=== PATIENT | female | born 1950 | race Caucasian/White ===

== ENCOUNTER 2018-11-30 11:28 | Inpatient (IN) | payer MEDICARE, OTHER ==
[2018-11-30 12:21] LABS: BASO % 0.6 % (0.0-2.0); EOS # 0.1 K/uL (0.0-0.7); EOS % 1.6 % (0.0-4.0); HEMOGLOBIN 13.2 g/dL (11.0-16.0); LYMPH # 1.2 K/uL (1.0-4.3); LYMPH % 16.2 % (20.0-40.0); MEAN CELL VOLUME 93.7 fL (81.0-99.0); MEAN CORPUSCULAR HEMOGLOBIN 31.2 pg (27.0-31.0); MEAN CORPUSCULAR HGB CONC 33.3 g/dL (33.0-37.0); MEAN PLATELET VOLUME 8.4 fL (7.2-11.7); MONO # 0.4 K/uL (0.0-0.8); MONO % 6.2 % (0.0-10.0); NEUT # 5.4 K/uL (1.8-7.0); NEUT % 75.4 % (50.0-75.0); RBC 4.23 Mil/uL (3.80-5.20); RED CELL DISTRIBUTION WIDTH 13.7 % (11.5-14.5); WHITE BLOOD COUNT 7.1 K/uL (4.8-10.8)
[2018-11-30 12:36] LABS: ALBUMIN 3.7 g/dL (3.5-5.0); ALT/SGPT 74 U/L (9-52); AST/SGOT 104 U/L (14-36); BLOOD UREA NITROGEN 11 mg/dL (7-17); CALCIUM 8.4 mg/dl (8.6-10.4); GFR NON-AFRICAN AMERICAN 50
--- NOTE | 2018-11-30 12:45 | C.PDOC ---
History Of Present Illness 68 y/o female,w/PMhx of HTN, brought to ER by ALS, for evaluation of sudden onset of shortness of breath which began in the morning. Patient states that the shortness of breath woke her up. Patient reports that she has chest tightne ss.Patient was placed on BIPAP by EMS and she was treated with Nitro, Ativan, and Lasix. Denies having fever,chills, headache,dizziness, nausea, and vomiting. Time Seen by Provider: 11/30/18 11:50 Chief Complaint (Nursing): Shortness Of Breath History Per: Patient History/Exam Limitations: no limitations Onset/Duration Of Symptoms: Hrs Current Symptoms Are (Timing): Still Present Severity: Moderate Past Medical History Reviewed: Historical Data, Nursing Documentation, Vital Signs Vital Signs: Last Vital Signs Temp 97.5 F L 11/30/18 11:36 Pulse 86 11/30/18 11:56 Resp 26 H 11/30/18 11:55 BP 167/100 H 11/30/18 11:36 Pulse Ox 100 11/30/18 11:55 Primary Care Provider: Non [facility] Provider, - Medical History PMH: CHF Surgical History: No Surg Hx Family History: States: No Known Family Hx - Social History Hx Alcohol Use: No Hx Substance Use: No Review Of Systems Except As Marked, All Systems Reviewed And Found Negative. Constitutional: Negative for: Fever, Chills Cardiovascular: Positive for: Other (chest tightness) Respiratory: Positive for: Shortness of Breath Gastrointestinal: Negative for: Nausea, Vomiting Physical Exam - Physical Exam Appears: No Acute Distress, Other (groggy) Skin: Normal Color, Warm, Dry Head: Atraumatic, Normacephalic Eye(s): bilateral: Normal Inspection Nose: Normal Oral Mucosa: Moist Neck: Supple Chest: Symmetrical Cardiovascular: Rhythm Regular (with tachycardia) Respiratory: Normal Breath Sounds, No Rales, No Rhonchi, No Wheezing Gastrointestinal/Abdominal: Soft, No Tenderness, No Guarding, No Rebound, Other (obese) Extremity: Normal ROM, No Calf Tenderness, Other (no pitting edema) Neurological/Psych: Oriented x3, Normal Speech ED Course And Treatment - Laboratory Results Result Diagrams: 11/30/18 12:17 11/30/18 12:17 Lab Results: D-Dimer, Quantitative 442 ng/mlDDU (0-243) H 11/30/18 12:17 Total Bilirubin 0.3 mg/dL (0.2-1.3) 11/30/18 12:17 AST 104 U/L (14-36) H 11/30/18 12:17 ALT 74 U/L (9-52) H 11/30/18 12:17 Alkaline Phosphatase 149 U/L (38-126) H 11/30/18 12:17 Total Protein 7.3 g/dL (6.3-8.3) 11/30/18 12:17 Albumin 3.7 g/dL (3.5-5.0) 11/30/18 12:17 Globulin 3.6 gm/dL (2.2-3.9) 11/30/18 12:17 Albumin/Globulin Ratio 1.0 (1.0-2.1) 11/30/18 12:17 O2 Sat by Pulse Oximetry: 100 (RA) Pulse Ox Interpretation: Normal Medical Decision Making Medical Decision Making: Plan: --Labs --ECG --CXR Disposition Discussed With Dr.: Manjinder Sam - Disposition Disposition: HOSPITALIZED Disposition Time: 15:45 Condition: GUARDED Forms: [facility] (Malawian) - POA Present On Arrival: None - Clinical Impression Clinical Impression: Dyspnea, Orthopnea, CHF (congestive heart failure) - Scribe Statement The provider has reviewed the documentation as recorded by the Delfinaibeli Nayak Provider Attestation: All medical record entries made by the Scribe were at my direction and personally dictated by me. I have reviewed the chart and agree that the record accurately reflects my personal performance of the history, physical exam, medical decision making, and the department course for this patient. I have also personally directed, reviewed, and agree with the discharge instructions and dis position. Decision To Admit - Pt Status Changed To: Hospital Disposition Of: Observation - . Bed Request Type: Telemetry Admitting Physician: Manjinder Sam Patient Diagnosis: Dyspnea, Orthopnea, CHF (congestive heart failure)
[2018-11-30 12:47] LABS: B-TYPE NATRIURETIC PEPTIDE 1990 pg/mL (0-900)
[2018-11-30] MEDS ORDERED: Iodixanol 320 MG/ML 100 ML BOTTLE IV ONE (13:28)
--- NOTE | 2018-11-30 14:10 | CT ---
Date of service: 11/30/2018 CTA chest PE protocol Indication: sob Technique: Contiguous axial images were obtained through the chest with intravenous contrast enhancement. Sagittal and coronal reconstructions were generated and reviewed. This CT exam was performed using 1 or more of the following dose reduction techniques: Automated exposure control, adjustment of the MAA and/or kV according to patient size, and/or use of iterative reconstruction technique. IV contrast: 100 mL Visipaque 320 IV Radiation dose (DLP): 629.98 MGy-cm. Comparison: Chest x-ray performed 11/30/18 Findings: Visualized portions of the inferior thyroid gland appear unremarkable. The mediastinal and hilar vascular structures appear within normal limits. Cardiomegaly. Dense coronary artery calcifications. Small pericardial effusion. Sub cm mediastinal/prevascular lymph nodes, nonspecific. Scattered atherosclerotic calcifications of the aorta. No large central or segmental pulmonary embolus evident. Small bilateral pleural effusions and associated consolidations. Hazy bilateral lower lobe infiltrates. No pneumothorax. Thick-walled esophagus and small to moderate hiatal hernia. Limited visualized portions of the upper abdomen appear grossly unremarkable. Degenerative changes of the spine. Impression: No large central or segmental pulmonary embolus identified. Small bilateral pleural effusions and associated consolidations. Hazy bilateral lower lobe infiltrates. Thick-walled esophagus. Small to moderate hiatal hernia. If indicated suggest further evaluation with endoscopy. Cardiomegaly. Small pericardial effusion. Dense coronary artery calcifications. Sub cm mediastinal/prevascular lymph nodes, nonspecific.
--- NOTE | 2018-11-30 14:55 | RAD ---
Date of service: 11/30/2018 PROCEDURE: CHEST RADIOGRAPH, 1 VIEW HISTORY: SOB COMPARISON: None available. FINDINGS: LUNGS: Low-density coalescent airspace opacity right lung base present. Obscuration of the lateral right hemidiaphragm. Possible trace concomitant left basal airspace opacity. PLEURA: Small right pleural effusion. Trace left pleural effusion. No pneumothorax appreciated. CARDIOVASCULAR: There is presence of aortic atherosclerotic calcification on x-ray. Cardiomegaly. Pulmonary venous congestion present. OSSEOUS STRUCTURES: No significant abnormalities. VISUALIZED UPPER ABDOMEN: Normal. OTHER FINDINGS: None. IMPRESSION: Small right pleural effusion. Trace left pleural effusion. Cardiomegaly with pulmonary venous congestion. Low-density airspace opacity right base low-density right basal infiltrate with or without compressive atelectasis. Concomitant coalescent pulmonary edema here also needs to be considered. Much lesser opacity-minimal infiltrate and subsegmental atelectasis left lateral lung base. An element of CHF the is inferred.
[2018-11-30] MEDS ORDERED: Dextrose 50% SYRINGE Inj (50 ml) IV PRN (16:30)
[2018-11-30] MEDS ORDERED: Glucagon Recombinant 1 mg Inj IM PRN (16:30)
--- NOTE | 2018-11-30 16:59 | CP.PCM.PN ---
Subjective - Date & Time of Evaluation Date of Evaluation: 11/30/18 Time of Evaluation: 16:42 - Subjective Subjective: Medicine Progress Note for Dr. Sam 68 year old female with history of hypertension and diabetes was brought in by ambulance for worsening shortness of breath and chest tightness. Patient reports her symptoms started suddenly approximately 8am today. No prior history of the same. Patient became worried and called the ambulance for herself. En route to the ED, patient was given Ativan, Lasix, and Nitroglycerine. Patient is a poor historian and somnolence throughout the interview. Further detail was obtained from daughter, Evon on the phone. She reports patient does not have a PMD but her last visit to a doctor's office was about 6 years ago. She was told to have hypertension and diabetes but did not start any medications. Patient sleeps with 4 pillows at night and becomes shortness of breath easily while climbing stairs. Daughter denies of patient having recent travels or cardiac workup. Daughter: Evon Kohler [phone] PMD: none PMHx: HTN, DM PSHx: Allergy: none Social hx: current smoker for unknown amount of years, social alcohol consumption Home meds: none Family Hx: father of [place] at age 71 Objective - Vital Signs/Intake and Output Vital Signs (last 24 hours): Temp Pulse Resp BP Pulse Ox 97.5 F L 96 H 18 166/90 H 96 11/30/18 11:36 11/30/18 16:33 11/30/18 16:33 11/30/18 16:33 11/30/18 16:33 - Medications Medications: Current Medications Dextrose (Dextrose 50% Inj) 0 ml IV STAT PRN; Protocol PRN Reason: Hypoglycemia Protocol Dextrose (Glutose 15) 0 gm PO ONCE PRN; Protocol PRN Reason: Hypoglycemia Protocol Enoxaparin Sodium (Lovenox) 40 mg SC DAILY ART Glucagon (Glucagen Diagnostic Kit) 0 mg IM STAT PRN; Protocol PRN Reason: Hypoglycemia Protocol Dextrose (Dextrose 5% In Water 1000 Ml) 1,000 mls @ 0 mls/hr IV .Q0M PRN; Protocol PRN Reason: Hypoglycemia Protocol Insulin Human Regular (Novolin R) 0 unit SC ACHS ART; Protocol Pantoprazole Sodium (Protonix Ec Tab) 40 mg PO DAILY ART - Labs Labs: 11/30/18 12:17 11/30/18 12:17 - Constitutional Appears: Well, No Acute Distress - Head Exam Head Exam: ATRAUMATIC, NORMAL INSPECTION, NORMOCEPHALIC - Eye Exam Eye Exam: EOMI, Normal appearance - ENT Exam ENT Exam: Mucous Membranes Moist, Normal Exam - Neck Exam Neck Exam: Full ROM, Normal Inspection - Respiratory Exam Respiratory Exam: Clear to Ausculation Bilateral, NORMAL BREATHING PATTERN. absent: Wheezes, Respiratory Distress - Cardiovascular Exam Cardiovascular Exam: REGULAR RHYTHM, +S1, +S2. absent: Murmur - GI/Abdominal Exam GI & Abdominal Exam: Soft, Normal Bowel Sounds. absent: Tenderness - Extremities Exam Extremities Exam: Normal Capillary Refill. absent: Normal Inspection (slight bilateral leg swelling, nonpitting), Tenderness - Neurological Exam Neurological Exam: Alert, Oriented x3. absent: Awake (somnolence) - Psychiatric Exam Psychiatric exam: Normal Affect, Normal Mood - Skin Skin Exam: Dry, Warm Assessment and Plan - Assessment and Plan (Free Text) Assessment: Shortness of breath -Likely due to CHF, unspecific chronicity -BNP 1989 -Troponin negative x1, repeats pending -EKG shows sinus tachy @104, no axis deviation, LVH, no acute ST elevation appreciated -CXR shows Small right pleural effusion. Trace left pleural effusion. Card iomegaly with pulmonary venous congestion. Low-density airspace opacity right base low-density right basal infiltrate with or without compressive atelectasis. Concomitant coalescent pulmonary edema here also needs to be considered. Much lesser opacity-minimal infiltrate and subsegmental atelectasis left lateral lung base. An element of CHF the is inferred. -CT Chest shows No large central or segmental pulmonary embolus identified. Small bilateral pleural effusions and associated consolidations. Hazy bilateral lower lobe infiltrates. Thick-walled esophagus. Small to moderate hiatal hernia . Dense coronary artery calcifications. -Follow up echocardiogram, urine tox, TSH -Lasix 20mg IV -ASA 81mg -Cardiology consulted, Dr. Cordova help appreciated Hypertension -Lisinopril 10mg Hypokalemia -Potassium 3.3 on admission -Replete as needed -Follow up AM Mg, labs Diabetes -ISS -Accucheck ACHS -Hypoglycemia protocol -Follow up A1c, lipid panel Prophylactic measures -Protonix -Lovenox -SCD Case discussed with attending physician Dr. Sam
[2018-11-30 17:17] LABS: BARBITURATES, UR NEGATIVE (NEGATIVE); BENZODIAZEPINES, UR NEGATIVE (NEGATIVE); OPIATES, UR NEGATIVE (NEGATIVE); PHENCYCLIDINE, UR NEGATIVE (NEGATIVE)
[2018-11-30] MEDS ORDERED: Potassium Chloride 20 mEq ER Tab PO ONE (17:30)
[2018-11-30 18:08] VITALS: BMI 36.1
[2018-11-30 20:28] LABS: CK-MB 1.11 ng/mL (0.0-3.38); TROPONIN I 0.079 ng/mL (0.00-0.120)
[2018-11-30] MEDS: (Novolin R) Insulin Human Regular 100 units/ml vial SC SCH (21:14)
[2018-12-01 02:26] LABS: CK-MB 0.76 ng/mL (0.0-3.38); TROPONIN I 0.073 ng/mL (0.00-0.120)
[2018-12-01] MEDS: (Novolin R) Insulin Human Regular 100 units/ml vial SC SCH ×4 (08:03→21:23)
[2018-12-01 08:34] LABS: BASO % 0.5 % (0.0-2.0); EOS # 0.2 K/uL (0.0-0.7); EOS % 3.9 % (0.0-4.0); HEMOGLOBIN 13.6 g/dL (11.0-16.0); LYMPH # 2.1 K/uL (1.0-4.3); LYMPH % 41.7 % (20.0-40.0); MEAN CELL VOLUME 92.1 fL (81.0-99.0); MEAN CORPUSCULAR HEMOGLOBIN 31.3 pg (27.0-31.0); MEAN CORPUSCULAR HGB CONC 33.9 g/dL (33.0-37.0); MONO # 0.5 K/uL (0.0-0.8); MONO % 9.7 % (0.0-10.0); NEUT # 2.3 K/uL (1.8-7.0); NEUT % 44.2 % (50.0-75.0); RBC 4.36 Mil/uL (3.80-5.20); RED CELL DISTRIBUTION WIDTH 13.8 % (11.5-14.5); WHITE BLOOD COUNT 5.1 K/uL (4.8-10.8)
--- NOTE | 2018-12-01 08:45 | CP.PCM.CON ---
"<Ronnie Neri - Last Filed: 12/01/18 16:35> History of Present Illness - History of Present Illness History of Present Illness: Consult Note for Dr. Cordova Cardiac Service Ms. Damon Salomon is 68 year old female with a PMH of HTN, HLD,and pre-diabetes; not currently on any medication. Patient was admitted on 11/30/18 for SOB and chest tightness. Cardiology consulted for evaluation and treatment of chest tightness/chf. She states she called the ambulance after experiencing SOB and chest tightness starting at around 8:30 AM. Patient denies any history of similar episodes, pain, radiating pain to the jaw, L. arm, shoulders, and abdomen. She admitted to increase in sweating, and being unable to lay down flat in the ambulance due to fear being unable to breath. She de nies having an event like this Patient admitted to using one line of cocaine on November 28. She states she felt like trying it and spoke about the difficult year she's had since her past away this past Aug. Patient also admitted to a previous abnormal stress test w/ Dr. Temple and recommendations of stent placement which she declined. Currently, patient has no acute complains. She denies fevers, chills, SOB, palpitations, dysurea, constipation, diarrhea, and pedal edema. Patient states she is supposed to be on medication for HTN and HLD but admits to non-compliance. ROS: As stated Above PMH: HTN, HLD, Impaired Glucose Tolerance PSH: Exploratory lap, unable to state the cause. Denies . Allergies: NKDA FamilyHx: Dad; of ID at 71, Mom; alive pacemaker at the age of 57, grandmother; of ID at 36. SocialHx: current smoker 1/2 PPD for 5 months. denies ETOH, Admits to Coccaine. Home meds: Patient supposed to be on medication but has not been for some time PMD: Used to see a Dr. Margarita Vallecillo. Review of Systems - Review of Systems Review of Systems: As per HPI Past Patient History - Past Social History Smoking Status: Never Smoked - CARDIAC Hx Congestive Heart Failure: Yes - ENDOCRINE/METABOLIC Hx Endocrine Disorders: Yes Hx Diabetes Mellitus Type 2: Yes - PSYCHIATRIC Hx Substance Use: No - SURGICAL HISTORY Hx Surgeries: No Meds Allergies/Adverse Reactions: Allergies Allergy/AdvReac Type Severity Reaction Status Date / Time No Known Allergies Allergy Verified 11/30/18 11:33 - Medications Medications: Current Medications Aspirin (Aspirin Chewable) 81 mg PO DAILY ART Dextrose (Dextrose 50% Inj) 0 ml IV STAT PRN; Protocol PRN Reason: Hypoglycemia Protocol Dextrose (Glutose 15) 0 gm PO ONCE PRN; Protocol PRN Reason: Hypoglycemia Protocol Enoxaparin Sodium (Lovenox) 40 mg SC DAILY ART Furosemide (Lasix) 20 mg IVP DAILY [facility] Glucagon (Glucagen Diagnostic Kit) 0 mg IM STAT PRN; Protocol PRN Reason: Hypoglycemia Protocol Dextrose (Dextrose 5% In Water 1000 Ml) 1,000 mls @ 0 mls/hr IV .Q0M PRN; Protocol PRN Reason: Hypoglycemia Protocol Insulin Human Regular (Novolin R) 0 unit SC ACHS ART; Protocol Last Admin: 12/01/18 08:03 Dose: Not Given Pantoprazole Sodium (Protonix Ec Tab) 40 mg PO DAILY [facility] Physical Exam - Constitutional Appears: Well, Non-toxic, No Acute Distress - Head Exam Head Exam: ATRAUMATIC, NORMAL INSPECTION, NORMOCEPHALIC - Eye Exam Eye Exam: EOMI - ENT Exam ENT Exam: Mucous Membranes Moist - Respiratory Exam Respiratory Exam: Clear to Auscultation Bilateral. absent: Accessory Muscle Use, Rales, Rhonchi, Wheezes - Cardiovascular Exam Cardiovascular Exam: RRR, +S1, +S2. absent: JVD - GI/Abdominal Exam GI & Abdominal Exam: Normal Bowel Sounds, Soft. absent: Tenderness - Extremities Exam Extremities exam: Negative for: pedal edema - Neurological Exam Neurological exam: Alert, Oriented x3 - Psychiatric Exam Psychiatric exam: Normal Affect, Normal Mood - Skin Skin Exam: Dry, Intact, Normal Color, Warm Results - Vital Signs Recent Vital Signs: Last Vital Signs Temp 98.3 F 11/30/18 23:48 Pulse 100 H 11/30/18 23:55 Resp 20 11/30/18 23:48 BP 136/77 11/30/18 23:48 Pulse Ox 100 12/01/18 03:00 - Labs Result Diagrams: 12/01/18 08:20 12/01/18 08:20 Labs: Laboratory Results - last 24 hr 11/30/18 11/30/18 11/30/18 12:17 12:17 12:17 WBC 7.1 RBC 4.23 Hgb 13.2 Hct 39.6 MCV 93.7 MCH 31.2 H MCHC 33.3 RDW 13.7 Plt Count 243 MPV 8.4 Neut % (Auto) 75.4 H Lymph % (Auto) 16.2 L [place] % (Auto) 6.2 Eos % (Auto) 1.6 Baso % (Auto) 0.6 Neut # (Auto) 5.4 Lymph # (Auto) 1.2 [place] # (Auto) 0.4 Eos # (Auto) 0.1 Baso # (Auto) 0.0 D-Dimer, Quantitative 442 H Sodium 142 Potassium 3.3 L Chloride 104 Carbon Dioxide 27 Anion Gap 14 BUN 11 Creatinine 1.1 Est GFR ( Amer) > 60 Est GFR (Non-Af Amer) 50 POC Glucose (mg/dL) Random Glucose 222 H Calcium 8.4 L Total Bilirubin 0.3 AST 104 H ALT 74 H Alkaline Phosphatase 149 H Total Creatine Kinase CK-MB (Mass) Troponin I 0.0260 NT-Pro-B Natriuret Pep 1990 H Total Protein 7.3 Albumin 3.7 Globulin 3.6 Albumin/Globulin Ratio 1.0 Urine Opiates Screen Urine Methadone Screen Ur Barbiturates Screen Ur Phencyclidine Scrn Ur Amphetamines Screen U Benzodiazepines Scrn U Oth Cocaine Metabols U Cannabinoids Screen 11/30/18 11/30/18 11/30/18 16:32 16:43 19:59 WBC RBC Hgb Hct MCV MCH MCHC RDW Plt Count MPV Neut % (Auto) Lymph % (Auto) [place] % (Auto) Eos % (Auto) Baso % (Auto) Neut # (Auto) Lymph # (Auto) [place] # (Auto) Eos # (Auto) Baso # (Auto) D-Dimer, Quantitative Sodium Potassium Chloride Carbon Dioxide Anion Gap BUN Creatinine Est GFR ( Amer) Est GFR (Non-Af Amer) POC Glucose (mg/dL) 155 H Random Glucose Calcium Total Bilirubin AST ALT Alkaline Phosphatase Total Creatine Kinase 48 CK-MB (Mass) 1.11 Troponin I 0.0790 NT-Pro-B Natriuret Pep Total Protein Albumin Globulin Albumin/Globulin Ratio Urine Opiates Screen Negative Urine Methadone Screen Negative Ur Barbiturates Screen Negative Ur Phencyclidine Scrn Negative Ur Amphetamines Screen Negative U Benzodiazepines Scrn Negative U Oth Cocaine Metabols Positive H U Cannabinoids Screen Negative 11/30/18 12/01/18 12/01/18 20:57 01:42 06:08 WBC RBC Hgb Hct MCV MCH MCHC RDW Plt Count MPV Neut % (Auto) Lymph % (Auto) [place] % (Auto) Eos % (Auto) Baso % (Auto) Neut # (Auto) Lymph # (Auto) [place] # (Auto) Eos # (Auto) Baso # (Auto) D-Dimer, Quantitative Sodium Potassium Chloride Carbon Dioxide Anion Gap BUN Creatinine Est GFR ( Amer) Est GFR (Non-Af Amer) POC Glucose (mg/dL) 176 H 127 H Random Glucose Calcium Total Bilirubin AST ALT Alkaline Phosphatase Total Creatine Kinase 35 CK-MB (Mass) 0.76 Troponin I 0.0730 NT-Pro-B Natriuret Pep Total Protein Albumin Globulin Albumin/Globulin Ratio Urine Opiates Screen Urine Methadone Screen Ur Barbiturates Screen Ur Phencyclidine Scrn Ur Amphetamines Screen U Benzodiazepines Scrn U Oth Cocaine Metabols U Cannabinoids Screen 12/01/18 08:20 WBC 5.1 RBC 4.36 Hgb 13.6 Hct 40.2 MCV 92.1 MCH 31.3 H MCHC 33.9 RDW 13.8 Plt Count 270 MPV 9.0 Neut % (Auto) 44.2 L Lymph % (Auto) 41.7 H [place] % (Auto) 9.7 Eos % (Auto) 3.9 Baso % (Auto) 0.5 Neut # (Auto) 2.3 Lymph # (Auto) 2.1 [place] # (Auto) 0.5 Eos # (Auto) 0.2 Baso # (Auto) 0.0 D-Dimer, Quantitative Sodium Potassium Chloride Carbon Dioxide Anion Gap BUN Creatinine Est GFR ( Amer) Est GFR (Non-Af Amer) POC Glucose (mg/dL) Random Glucose Calcium Total Bilirubin AST ALT Alkaline Phosphatase Total Creatine Kinase CK-MB (Mass) Troponin I NT-Pro-B Natriuret Pep Total Protein Albumin Globulin Albumin/Globulin Ratio Urine Opiates Screen Urine Methadone Screen Ur Barbiturates Screen Ur Phencyclidine Scrn Ur Amphetamines Screen U Benzodiazepines Scrn U Oth Cocaine Metabols U Cannabinoids Screen Assessment & Plan - Assessment and Plan (Free Text) Assessment: 68 year old female with a PMH of HTN, HLD,and pre-diabetes; not currently on any medication. Patient was admitted on 11/30/18 for SOB and chest tightness. Cardiology consulted for evaluation and treatment of chest tight ness/chf. Plan: Chest Tightness | Elevated BNP | HTN Labs: Troponin: NEGATIVE x 3, BNP: 1990 | UDS: Positive for Coccaine| D-Dimer: 442 Labs (PENDING): Lipid Panel, TSH/Free T4, Hemoglobin A1C - F/U CXR (Admission): Small right pleural effusion. Trace left pleural effusion. Cardiomegaly with pulmonary venous congestion. Low-density airspace opacity right base low-density right basal infiltrate with or without compressive atelectasis. Concomitant coalescent pulmonary edema here also needs to be considered. Much lesser opacity-minimal infiltrate and subsegmental atelectasis left lateral lung base. An element of CHF the is inferred. Chest CT:No large central or segmental pulmonary embolus identified. Small bilateral pleural effusions and associated consolidations. Hazy bilateral lower lobe infiltrates. Thick-walled esophagus. Small to moderate hiatal hernia. If indicated suggest further evaluation with endoscopy. Cardiomegaly. Small pericardial effusion. Dense coronary artery calcifications. Sub cm mediastinal/prevascular lymph nodes, nonspecific. ECHO (11/30/18): Preliminary Read show about 30% EF and Mitral Regurg. F/U Off icial read. Mgmt: Start Lisinopril 10mg PO Daily Increase Lasix from 20mg Daily to BID IVP. 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 DISPO: NPO after midnight, Nuclear Stress Test Tomorrow in the AM vs possible Ca rdiac Cath. Patient to be discused with Attending (Dr. Cordova) Ronnie Neri, PGY-2 <John Cordova - Last Filed: 12/03/18 08:42> Meds - Medications Medications: Current Medications Amlodipine Besylate (Norvasc) 5 mg PO DAILY [facility] Last Admin: 12/02/18 12:50 Dose: 5 mg Aspirin (Aspirin Chewable) 81 mg PO DAILY [facility] Last Admin: 12/02/18 12:50 Dose: 81 mg Carvedilol (Coreg) 3.125 mg PO BID [facility] Last Admin: 12/02/18 17:43 Dose: 3.125 mg Dextrose (Dextrose 50% Inj) 0 ml IV STAT PRN; Protocol PRN Reason: Hypoglycemia Protocol Dextrose (Glutose 15) 0 gm PO ONCE PRN; Protocol PRN Reason: Hypoglycemia Protocol Enoxaparin Sodium (Lovenox) 60 mg SC Q12 ATR Furosemide (Lasix) 20 mg IVP DAILY [facility] Last Admin: 12/02/18 12:49 Dose: 20 mg Glucagon (Glucagen Diagnostic Kit) 0 mg IM STAT PRN; Protocol PRN Reason: Hypoglycemia Protocol Dextrose (Dextrose 5% In Water 1000 Ml) 1,000 mls @ 0 mls/hr IV .Q0M PRN; Protocol PRN Reason: Hypoglycemia Protocol Insulin Human Regular (Novolin R) 0 unit SC ACHS ART; Protocol Last Admin: 12/03/18 08:16 Dose: Not Given Lisinopril (Zestril) 10 mg PO DAILY [facility] Last Admin: 12/02/18 12:50 Dose: 10 mg Rosuvastatin Calcium (Crestor) 40 mg PO HS [facility] Results - Vital Signs Recent Vital Signs: Last Vital Signs Temp 98.1 F 12/02/18 23:10 Pulse 76 12/02/18 23:10 Resp 20 12/02/18 23:10 BP 132/63 12/02/18 23:10 Pulse Ox 97 12/02/18 23:10 - Labs Result Diagrams: 12/03/18 07:07 12/03/18 07:07 Labs: Laboratory Results - last 24 hr 12/02/18 12/02/18 12/02/18 12:52 13:29 13:29 WBC 4.8 RBC 4.58 Hgb 14.1 Hct 42.1 MCV 92.0 MCH 30.8 MCHC 33.4 RDW 13.6 Plt Count 276 MPV 8.4 Neut % (Auto) 39.4 L Lymph % (Auto) 46.0 H [place] % (Auto) 10.3 H Eos % (Auto) 4.1 H Baso % (Auto) 0.2 Neut # (Auto) 1.9 Lymph # (Auto) 2.2 [place] # (Auto) 0.5 Eos # (Auto) 0.2 Baso # (Auto) 0.0 Sodium 139 Potassium 4.2 Chloride 103 Carbon Dioxide 27 Anion Gap 13 BUN 12 Creatinine 1.2 Est GFR ( Amer) 54 Est GFR (Non-Af Amer) 45 POC Glucose (mg/dL) 169 H Random Glucose 164 H D Hemoglobin A1c Calcium 9.7 Phosphorus 3.3 Magnesium 1.9 Total Bilirubin 0.4 AST 38 H D ALT 40 Alkaline Phosphatase 140 H Total Protein 7.9 Albumin 4.1 Globulin 3.9 Albumin/Globulin Ratio 1.1 Triglycerides 147 Cholesterol 229 H LDL Cholesterol Direct 146 H HDL Cholesterol 53 Free T4 TSH 3rd Generation 2.22 12/02/18 12/02/18 12/02/18 13:29 13:29 16:07 WBC RBC Hgb Hct MCV MCH MCHC RDW Plt Count MPV Neut % (Auto) Lymph % (Auto) [place] % (Auto) Eos % (Auto) Baso % (Auto) Neut # (Auto) Lymph # (Auto) [place] # (Auto) Eos # (Auto) Baso # (Auto) Sodium Potassium Chloride Carbon Dioxide Anion Gap BUN Creatinine Est GFR ( Amer) Est GFR (Non-Af Amer) POC Glucose (mg/dL) 187 H Random Glucose Hemoglobin A1c 8.3 H Calcium Phosphorus Magnesium Total Bilirubin AST ALT Alkaline Phosphatase Total Protein Albumin Globulin Albumin/Globulin Ratio Triglycerides Cholesterol LDL Cholesterol Direct HDL Cholesterol Free T4 1.10 TSH 3rd Generation 12/02/18 12/03/18 12/03/18 20:48 06:42 07:07 WBC 4.4 L RBC 4.37 Hgb 13.5 Hct 40.4 MCV 92.4 MCH 30.9 MCHC 33.4 RDW 13.8 Plt Count 266 MPV 8.7 Neut % (Auto) 33.3 L Lymph % (Auto) 49.2 H [place] % (Auto) 11.1 H Eos % (Auto) 5.6 H Baso % (Auto) 0.8 Neut # (Auto) 1.5 L Lymph # (Auto) 2.2 [place] # (Auto) 0.5 Eos # (Auto) 0.2 Baso # (Auto) 0.0 Sodium Potassium Chloride Carbon Dioxide Anion Gap BUN Creatinine Est GFR ( Amer) Est GFR (Non-Af Amer) POC Glucose (mg/dL) 145 H 117 H Random Glucose Hemoglobin A1c Calcium Phosphorus Magnesium Total Bilirubin AST ALT Alkaline Phosphatase Total Protein Albumin Globulin Albumin/Globulin Ratio Triglycerides Cholesterol LDL Cholesterol Direct HDL Cholesterol Free T4 TSH 3rd Generation 12/03/18 07:07 WBC RBC Hgb Hct MCV MCH MCHC RDW Plt Count MPV Neut % (Auto) Lymph % (Auto) [place] % (Auto) Eos % (Auto) Baso % (Auto) Neut # (Auto) Lymph # (Auto) [place] # (Auto) Eos # (Auto) Baso # (Auto) Sodium 138 Potassium 4.0 Chloride 107 Carbon Dioxide 23 Anion Gap 12 BUN 19 H Creatinine 1.4 H Est GFR ( Amer) 46 Est GFR (Non-Af Amer) 38 POC Glucose (mg/dL) Random Glucose 114 H D Hemoglobin A1c Calcium 9.4 Phosphorus 3.8 Magnesium 1.9 Total Bilirubin 0.3 AST 30 ALT 34 Alkaline Phosphatase 121 Total Protein 7.3 Albumin 3.7 Globulin 3.6 Albumin/Globulin Ratio 1.0 Triglycerides Cholesterol LDL Cholesterol Direct HDL Cholesterol Free T4 TSH 3rd Generation Assessment & Plan - Assessment and Plan (Free Text) Plan: Patient seen and evaluated personally by me. Plan of care d/w the resident and as documented"
[2018-12-01 08:57] LABS: ALBUMIN 3.7 g/dL (3.5-5.0); ALT/SGPT 48 U/L (9-52); AST/SGOT 49 U/L (14-36); BLOOD UREA NITROGEN 11 mg/dL (7-17); CALCIUM 8.8 mg/dl (8.6-10.4); GFR NON-AFRICAN AMERICAN 50
[2018-12-01] MEDS ORDERED: Pantoprazole 40 mg EC Tab PO SCH (10:00)
[2018-12-01] MEDS ORDERED: Enoxaparin 40 mg Syringe SC SCH (10:00)
--- NOTE | 2018-12-01 13:38 | CP.PCM.PN ---
Subjective - Date & Time of Evaluation Date of Evaluation: 12/01/18 Time of Evaluation: 07:45 - Subjective Subjective: [place] note (Dr. Sam's service) Patient was seen and examined at bedside while resting in bed in no acute distress. Patient states that she is with improved symptoms and denies any acute issues or complaints. Currently, patient denies any symptoms of fever, chills, nausea, vomiting, chest pain, palpitations, shortness of breath, dizziness, or syncope. Patient states that she is able to ambulate without any difficulties or symptoms of shortness of breath. Objective - Vital Signs/Intake and Output Vital Signs (last 24 hours): Temp Pulse Resp BP Pulse Ox 98.4 F 96 H 20 158/92 H 95 12/01/18 07:00 12/01/18 07:35 12/01/18 07:00 12/01/18 09:15 12/01/18 07:00 - Medications Medications: Current Medications Amlodipine Besylate (Norvasc) 5 mg PO DAILY [facility] Aspirin (Aspirin Chewable) 81 mg PO DAILY [facility] Last Admin: 12/01/18 09:16 Dose: 81 mg Dextrose (Dextrose 50% Inj) 0 ml IV STAT PRN; Protocol PRN Reason: Hypoglycemia Protocol Dextrose (Glutose 15) 0 gm PO ONCE PRN; Protocol PRN Reason: Hypoglycemia Protocol Enoxaparin Sodium (Lovenox) 40 mg SC DAILY [facility] Last Admin: 12/01/18 09:16 Dose: 40 mg Furosemide (Lasix) 20 mg IVP DAILY [facility] Last Admin: 12/01/18 09:15 Dose: 20 mg Glucagon (Glucagen Diagnostic Kit) 0 mg IM STAT PRN; Protocol PRN Reason: Hypoglycemia Protocol Dextrose (Dextrose 5% In Water 1000 Ml) 1,000 mls @ 0 mls/hr IV .Q0M PRN; Protocol PRN Reason: Hypoglycemia Protocol Insulin Human Regular (Novolin R) 0 unit SC ACHS [facility]; Protocol Last Admin: 12/01/18 12:39 Dose: 3 units Pantoprazole Sodium (Protonix Ec Tab) 40 mg PO DAILY [facility] Last Admin: 12/01/18 09:15 Dose: 40 mg - Labs Labs: 12/01/18 08:20 12/01/18 08:20 - Constitutional Appears: No Acute Distress - Head Exam Head Exam: ATRAUMATIC, NORMAL INSPECTION - Eye Exam Eye Exam: EOMI, Normal appearance - ENT Exam ENT Exam: Mucous Membranes Moist - Respiratory Exam Respiratory Exam: Clear to Ausculation Bilateral, NORMAL BREATHING PATTERN. absent: Decreased Breath Sounds, Prolonged Expiratory Phase, Rhonchi, Wheezes - Cardiovascular Exam Cardiovascular Exam: REGULAR RHYTHM, +S1, +S2. absent: Murmur - GI/Abdominal Exam GI & Abdominal Exam: Soft, Normal Bowel Sounds. absent: Distended, Firm, Guarding, Rigid, Tenderness - Extremities Exam Extremities Exam: Normal Inspection. absent: Calf Tenderness, Pedal Edema - Neurological Exam Neurological Exam: Alert, Awake, Oriented x3 - Psychiatric Exam Psychiatric exam: Normal Affect - Skin Skin Exam: Normal Color Assessment and Plan (1) Dyspnea Assessment & Plan: Imaging suggestive of acute CHF Consultation: Cardiology, Dr. Cordova----> Help appreciated * Management as per recommendation Imaging/labs: Troponin: Negative X3 EKG (11/30/18): NSR @ 63BPM. Voltage criteria ventricular hypertrophy -CXR (11/30/18): shows Small right pleural effusion. Trace left pleural effusion. Cardiomegaly with pulmonary venous congestion. Low-density airspace opacity right base low-density right basal infiltrate with or without compressive atelectasis. Concomitant coalescent pulmonary edema here also needs to be considered. Much lesser opacity-minimal infiltrate and subsegmental atelectasis left lateral lung base. An element of CHF the is inferred. -CT Chest (PE protocol) 11/30/18: shows No large central or segmental pulmonary embolus identified. Small bilateral pleural effusions and associated consolidations. Hazy bilateral lower lobe infiltrates. Thick-walled esophagus. Small to moderate hiatal hernia. Dense coronary artery calcifications. F/u echocardiogram report Status: Acute (2) CHF (congestive heart failure) Assessment & Plan: Consultation: Cardiology, Dr. Cordova----> Help appreciated Management as per recommendation Imaging/Lab: Troponin: Negative X3 EKG (11/30/18): NSR @ 63BPM. Voltage criteria ventricular hypertrophy CXR (11/30/18): shows Small right pleural effusion. Trace left pleural effusion. Cardiomegaly with pulmonary venous congestion. Low-density airspace opacity right base low-density right basal infiltrate with or without compressive atelectasis. Concomitant coalescent pulmonary edema here also needs to be considered. Much lesser opacity-minimal infiltrate and subsegmental atelectasis left lateral lung base. An element of CHF the is inferred. CT Chest (PE protocol) 11/30/18: shows No large central or segmental pulmonary embolus identified. Small bilateral pleural effusions and associated consolidations. Hazy bilateral lower lobe infiltrates. Thick-walled esophagus. Small to moderate hiatal hernia. Dense coronary artery calcifications. F/u echocardiogram report F/u TSH, Free T4, HgbA1C and Lipid panel Medications/management: - Lasix 20mg IV daily - Fluid restriction - Daily weight Status: Acute (3) Uncontrolled hypertension Assessment & Plan: Initiated Norvasc 5mg PO daily (12/01/18) Monitor for vital Q4H Status: Acute (4) Elevated d-dimer Assessment & Plan: On admission: * D-dimer: 442 CT Chest (PE protocol) 11/30/18: shows No large central or segmental pulmonary embolus identified. Small bilateral pleural effusions and associated consolidations. Hazy bilateral lower lobe infiltrates. Thick-walled esophagus. Small to moderate hiatal hernia. Dense coronary artery calcifications. Status: Acute (5) Prophylactic measure Assessment & Plan: GI: Not indicated DVT: SCDs, lovenox 40mg SC daily All plans and management discussed with Dr. Sam Status: Acute
--- NOTE | 2018-12-01 16:22 | CARD ---
APPROVED REPORT Date of service: 12/01/2018 EXAM: Two-dimensional and M-mode echocardiogram with Doppler and color Doppler. INDICATION Dyspnea Congestive Heart Failure bipap RISK FACTORS Hypertension Diabetes 2D DIMENSIONS IVSd1.1 (0.7-1.1cm)LVDd5.5 (3.9-5.9cm) PWd1.2 (0.7-1.1cm)LA [id number] (18-58mL) LVDs4.6 (2.5-4.0cm)FS (%) 16.7 % LVEF (%)34.6 (>50%)LVEF ([place]'s)37.55 % M-Mode DIMENSIONS Left Atrium (MM)4.51 (2.5-4.0cm)IVSd1.09 (0.7-1.1cm) Aortic Root3.15 (2.2-3.7cm)LVDd5.67 (4.0-5.6cm) Aortic Cusp Exc.1.87 (1.5-2.0cm)PWd1.07 (0.7-1.1cm) FS (%) 22 %LVDs4.44 (2.0-3.8cm) LVEF (%)43 (>50%) Mitral Valve MV E [id number]/sMV A Ksxjcuhh95.5cm/sE/A ratio1.5 [id number] cm/s TDI Lateral E' Peak V5.58cm/sMedial E' Peak V5.19cm/sE/Lateral E'16.8 E/Medial E'18.1 Tricuspid Valve TR Peak [id number]/sTR Peak [id number] LEFT VENTRICLE The left ventricle is normal size. There is normal left ventricular wall thickness. The Ejection Fraction is 35-40%. Transmitral Doppler flow pattern is Grade II-pseudonormal filling dynamics. The left atrial pressure is mildly elevated. RIGHT VENTRICLE The right ventricle is normal size. The right ventricular systolic function is normal. ATRIA The left atrium is moderately dilated. The right atrium size is normal. The interatrial septum is intact with no evidence for an atrial septal defect. AORTIC VALVE The aortic valve is mildly sclerotic. No aortic regurgitation is present. MITRAL VALVE Mitral annular calcification is mild. Mitral regurgitation is moderate. TRICUSPID VALVE The tricuspid valve is normal in structure. There is mild to moderate tricuspid regurgitation. Right ventricular systolic pressure is estimated at 45 mmHg. There is moderate pulmonary hypertension. PULMONIC VALVE The pulmonary valve is normal in structure. There is mild pulmonic valvular regurgitation. GREAT VESSELS The aortic root is normal in size. The IVC is normal in size and collapses >50% with inspiration. PERICARDIAL EFFUSION There is no pericardial effusion. <Conclusion> The left ventricle is normal size. The Ejection Fraction is 35-40%. Transmitral Doppler flow pattern is Grade II-pseudonormal filling dynamics. The left atrial pressure is mildly elevated. The left atrium is moderately dilated. Mitral regurgitation is moderate. There is mild to moderate tricuspid regurgitation. Right ventricular systolic pressure is estimated at 45 mmHg. There is moderate pulmonary hypertension. The aortic root is normal in size. There is no pericardial effusion.
--- NOTE | 2018-12-02 06:23 | HP ---
HISTORY OF PRESENT ILLNESS: A 68-year-old female; has complaints of shortness of breath, weakness, fatigue, tiredness. The patient came to hospital for admission. PHYSICAL EXAMINATION: GENERAL: The patient is awake, alert, oriented. VITAL SIGNS: Temperature 98, pulse 90. HEENT: Within normal limits. NECK: Supple. CHEST: Symmetrical. HEART: Regular. ABDOMEN: Soft. EXTREMITIES: No edema. IMPRESSION AND PLAN: The patient suffers from congestive heart failure. The patient to get bedrest, supportive care. Manjinder Sam MD
[2018-12-02] MEDS: (Novolin R) Insulin Human Regular 100 units/ml vial SC SCH ×6 (07:18→21:06)
[2018-12-02] MEDS ORDERED: Caffeine Citrated **INJ** 20 MG/ML IV ONE (08:08)
--- NOTE | 2018-12-02 11:47 | CP.PCM.PN ---
Subjective - Date & Time of Evaluation Date of Evaluation: 12/02/18 Time of Evaluation: 13:00 - Subjective Subjective: Medicine progress Note for Dr. Sam Patient seen and examined at bedside. No acute events reported overnight. Patient had returned from stress lab and is resting in bed comfortable. She denies chest pain or shortness of breath. Patient is aware of her cardiac cath procedure tomorrow. She further denies fever, chills, dizziness, headache, abdominal pain, nausea, vomiting, or diarrhea. Objective - Vital Signs/Intake and Output Vital Signs (last 24 hours): Temp Pulse Resp BP Pulse Ox 97.6 F 80 20 139/76 94 L 12/02/18 07:00 12/02/18 07:00 12/02/18 07:00 12/02/18 07:00 12/02/18 07:00 Intake and Output: 12/02/18 12/02/18 06:59 18:59 Intake Total 400 Balance 400 - Medications Medications: Current Medications Amlodipine Besylate (Norvasc) 5 mg PO DAILY [facility] Last Admin: 12/01/18 14:12 Dose: 5 mg Aspirin (Aspirin Chewable) 81 mg PO DAILY [facility] Last Admin: 12/01/18 09:16 Dose: 81 mg Dextrose (Dextrose 50% Inj) 0 ml IV STAT PRN; Protocol PRN Reason: Hypoglycemia Protocol Dextrose (Glutose 15) 0 gm PO ONCE PRN; Protocol PRN Reason: Hypoglycemia Protocol Enoxaparin Sodium (Lovenox) 40 mg SC DAILY [facility] Last Admin: 12/01/18 09:16 Dose: 40 mg Furosemide (Lasix) 20 mg IVP DAILY [facility] Last Admin: 12/01/18 09:15 Dose: 20 mg Glucagon (Glucagen Diagnostic Kit) 0 mg IM STAT PRN; Protocol PRN Reason: Hypoglycemia Protocol Dextrose (Dextrose 5% In Water 1000 Ml) 1,000 mls @ 0 mls/hr IV .Q0M PRN; Protocol PRN Reason: Hypoglycemia Protocol Insulin Human Regular (Novolin R) 0 unit SC [facility]; Protocol Last Admin: 12/02/18 07:18 Dose: Not Given Lisinopril (Zestril) 10 mg PO DAILY [facility] - Labs Labs: 12/01/18 08:20 12/01/18 08:20 - Additional Findings Additional findings: - Constitutional Appears: Well, Non-toxic, No Acute Distress - Head Exam Head Exam: ATRAUMATIC, NORMAL INSPECTION, NORMOCEPHALIC - Eye Exam Eye Exam: EOMI - ENT Exam ENT Exam: Mucous Membranes Moist - Respiratory Exam Respiratory Exam: Clear to Auscultation Bilateral. Decreased Breath Sounds. absent: Accessory Muscle Use, Rales, Rhonchi, Wheezes - Cardiovascular Exam Cardiovascular Exam: RRR, +S1, +S2. absent: JVD - GI/Abdominal Exam GI & Abdominal Exam: Normal Bowel Sounds, Soft. absent: Tenderness - Extremities Exam Extremities exam: Negative for: pedal edema - Neurological Exam Neurological exam: Alert, Oriented x3 - Psychiatric Exam Psychiatric exam: Normal Affect, Normal Mood - Skin Skin Exam: Dry, Intact, Normal Color, Warm Assessment and Plan - Assessment and Plan (Free Text) Assessment: (1) Dyspnea Assessment & Plan: Imaging suggestive of acute CHF Consultation: Cardiology, Dr. Cordova----> Help appreciated * Management as per recommendation Imaging/labs: Troponin: Negative X3 EKG (11/30/18): NSR @ 63BPM. Voltage criteria ventricular hypertrophy -CXR (11/30/18): shows Small right pleural effusion. Trace left pleural effusion. Cardiomegaly with pulmonary venous congestion. Low-density airspace opacity right base low-density right basal infiltrate with or without compressive atelectasis. Concomitant coalescent pulmonary edema here also needs to be considered. Much lesser opacity-minimal infiltrate and subsegmental atelectasis left lateral lung base. An element of CHF the is inferred. -CT Chest (PE protocol) 11/30/18: shows No large central or segmental pulmonary embolus identified. Small bilateral pleural effusions and associated consolidations. Hazy bilateral lower lobe infiltrates. Thick-walled esophagus. Small to moderate hiatal hernia. Dense coronary artery calcifications. Echocardiogram (11/30/18): shows Normal LV Size. EF: 35-40%, Grade II-seudonormal Filling dynamics, Moderate MR, mild-Moderate tricuspid Regurn. Moderate pulmonary HTN, aortic root in normal Size, no Pericardial effusion F/U Stress Test results Planned for Cardiac cath tomorrow, NPO after midnight Status: Acute (2) CHF (congestive heart failure) Assessment & Plan: Consultation: Cardiology, Dr. Cordova----> Help appreciated Management as per recommendation Imaging/Lab: Troponin: Negative X3 EKG (11/30/18): NSR @ 63BPM. Voltage criteria ventricular hypertrophy CXR (11/30/18): shows Small right pleural effusion. Trace left pleural effusion. Cardiomegaly with pulmonary venous congestion. Low-density airspace opacity right base low-density right basal infiltrate with or without compressive atelectasis. Concomitant coalescent pulmonary edema here also needs to be considered. Much lesser opacity-minimal infiltrate and subsegmental atelectasis left lateral lung base. An element of CHF the is inferred. CT Chest (PE protocol) 11/30/18: shows No large central or segmental pulmonary embolus identified. Small bilateral pleural effusions and associated consolidations. Hazy bilateral lower lobe infiltrates. Thick-walled esophagus. Small to moderate hiatal hernia. Dense coronary artery calcifications. Echocardiogram (11/30/18): shows Normal LV Size. EF: 35-40%, Grade II-seudonormal Filling dynamics, Moderate MR, mild-Moderate tricuspid Regurn. Moderate pulmonary HTN, aortic root in normal Size, no Pericardial effusion. TSH ,Free T4 normal Medications/management: - Lasix 20mg IV daily - Fluid restriction - Daily weight Status: Acute (3) Uncontrolled hypertension Assessment & Plan: Initiated Norvasc 5mg PO daily (12/01/18) Monitor for vital Q4H Status: Acute (4) Elevated d-dimer Assessment & Plan: On admission: * D-dimer: 442 CT Chest (PE protocol) 11/30/18: shows No large central or segmental pulmonary embolus identified. Small bilateral pleural effusions and associated consolidations. Hazy bilateral lower lobe infiltrates. Thick-walled esophagus. Small to moderate hiatal hernia. Dense coronary artery calcifications. Status: Acute (5) Diabetes Assessment & Plan: ISS Accucheck ACHS Hypoglycemia protocol A1c 8.3 Status: Acute (6) Hyperlipidemia Assessment & Plan: Crestor 10mg Status: Acute (7) Substance abuse Assessment & Plan: UDS positive for cocaine Patient admits to one time cocaine use a week ago Current cigarette smoker (on and off for 30 years) Cessation is strongly advised Status: Acute (8) Prophylactic measure Assessment & Plan: GI: Not indicated DVT: SCDs, lovenox 40mg SC daily All plans and management discussed with Dr. Sam Status: Acute
--- NOTE | 2018-12-02 13:25 | CP.PCM.PN ---
"<Ronnie Neri - Last Filed: 12/02/18 16:48> Subjective - Date & Time of Evaluation Date of Evaluation: 12/02/18 Time of Evaluation: 13:22 - Subjective Subjective: Cardiology Progress Note for Dr. Cordova Patient seen and examined in Stress Test Waiting room. No overnight events reported. Patient denies any chest pain, palpitations, or SOB. Objective - Vital Signs/Intake and Output Vital Signs (last 24 hours): Temp Pulse Resp BP Pulse Ox 97.6 F 80 20 170/116 H 94 L 12/02/18 07:00 12/02/18 07:00 12/02/18 07:00 12/02/18 12:49 12/02/18 07:00 Intake and Output: 12/02/18 12/02/18 06:59 18:59 Intake Total 400 Balance 400 - Medications Medications: Current Medications Amlodipine Besylate (Norvasc) 5 mg PO DAILY [facility] Last Admin: 12/02/18 12:50 Dose: 5 mg Aspirin (Aspirin Chewable) 81 mg PO DAILY [facility] Last Admin: 12/02/18 12:50 Dose: 81 mg Dextrose (Dextrose 50% Inj) 0 ml IV STAT PRN; Protocol PRN Reason: Hypoglycemia Protocol Dextrose (Glutose 15) 0 gm PO ONCE PRN; Protocol PRN Reason: Hypoglycemia Protocol Enoxaparin Sodium (Lovenox) 40 mg SC DAILY [facility] Last Admin: 12/01/18 09:16 Dose: 40 mg Furosemide (Lasix) 20 mg IVP DAILY [facility] Last Admin: 12/02/18 12:49 Dose: 20 mg Glucagon (Glucagen Diagnostic Kit) 0 mg IM STAT PRN; Protocol PRN Reason: Hypoglycemia Protocol Dextrose (Dextrose 5% In Water 1000 Ml) 1,000 mls @ 0 mls/hr IV .Q0M PRN; Protocol PRN Reason: Hypoglycemia Protocol Insulin Human Regular (Novolin R) 0 unit SC ACHS [facility]; Protocol Last Admin: 12/02/18 12:54 Dose: 2 units Lisinopril (Zestril) 10 mg PO DAILY [facility] Last Admin: 12/02/18 12:50 Dose: 10 mg - Labs Labs: 12/01/18 08:20 12/01/18 08:20 - Additional Findings Additional findings: - Constitutional Appears: Well, Non-toxic, No Acute Distress - Head Exam Head Exam: ATRAUMATIC, NORMAL INSPECTION, NORMOCEPHALIC - Eye Exam Eye Exam: EOMI - ENT Exam ENT Exam: Mucous Membranes Moist - Respiratory Exam Respiratory Exam: Clear to Auscultation Bilateral. Decreased Breath Sounds. absent: Accessory Muscle Use, Rales, Rhonchi, Wheezes - Cardiovascular Exam Cardiovascular Exam: RRR, +S1, +S2. absent: JVD - GI/Abdominal Exam GI & Abdominal Exam: Normal Bowel Sounds, Soft. absent: Tenderness - Extremities Exam Extremities exam: Negative for: pedal edema - Neurological Exam Neurological exam: Alert, Oriented x3 - Psychiatric Exam Psychiatric exam: Normal Affect, Normal Mood - Skin Skin Exam: Dry, Intact, Normal Color, Warm Assessment and Plan - Assessment and Plan (Free Text) Assessment: 68 year old female with a PMH of HTN, HLD,and pre-diabetes; not currently on any medication. Patient was admitted on 11/30/18 for SOB and chest tightness. Cardiology consulted for evaluation and treatment of chest tightness/chf. Plan: Chest Tightness | Elevated BNP | HTN Labs: Troponin: NEGATIVE x 3, BNP: 1990 | UDS: Positive for Coccaine| D-Dimer: 442 Labs (PENDING): Lipid Panel, TSH/Free T4, Hemoglobin A1C - F/U CXR (Admission): Small right pleural effusion. Trace left pleural effusion. Cardiomegaly with pulmonary venous congestion. Low-density airspace opacity right base low-density right basal infiltrate with or without compressive atelectasis. Concomitant coalescent pulmonary edema here also needs to be c onsidered. Much lesser opacity-minimal infiltrate and subsegmental atelectasis left lateral lung base. An element of CHF the is inferred. Chest CT:No large central or segmental pulmonary embolus identified. Small bilateral pleural effusions and associated consolidations. Hazy bilateral lower lobe infiltrates. Thick-walled esophagus. Small to moderate hiatal hernia. If indicated suggest further evaluation with endoscopy. Cardiomegaly. Small pericardial effusion. Dense coronary artery calcifications. Sub cm mediastinal/prevascular lymph nodes, nonspecific. ECHO (11/30/18): Normal LV Size. EF: 35-40%, Grade II-seudonormal Filling dynami cs, Moderate MR, mild-Moderate tricuspid Regurn. Moderate pulmonary HTN, aortic root in normal Size, no Pericardial effusion. Stress Test: Sign of Ant. Ischemia on Stress Test. Cath Tomorrow in AM. Mgmt: Lisinopril 10mg PO Daily Lasix 20mg IVP Daily ASA 81mg Daily Start Carvedilol 3.125 BID DISPO: NPO after midnight for Cardiac Cath tomorrow in the AM. Patient discussed with Dr. Art Neri, PGY-2 <John Cordova - Last Filed: 12/03/18 08:42> Objective - Vital Signs/Intake and Output Vital Signs (last 24 hours): Temp Pulse Resp BP Pulse Ox 98.1 F 76 20 132/63 97 12/02/18 23:10 12/02/18 23:10 12/02/18 23:10 12/02/18 23:10 12/02/18 23:10 Intake and Output: 12/03/18 12/03/18 06:59 18:59 Intake Total 450 Balance 450 - Medications Medications: Current Medications Amlodipine Besylate (Norvasc) 5 mg PO DAILY [facility] Last Admin: 12/02/18 12:50 Dose: 5 mg Aspirin (Aspirin Chewable) 81 mg PO DAILY [facility] Last Admin: 12/02/18 12:50 Dose: 81 mg Carvedilol (Coreg) 3.125 mg PO BID [facility] Last Admin: 12/02/18 17:43 Dose: 3.125 mg Dextrose (Dextrose 50% Inj) 0 ml IV STAT PRN; Protocol PRN Reason: Hypoglycemia Protocol Dextrose (Glutose 15) 0 gm PO ONCE PRN; Protocol PRN Reason: Hypoglycemia Protocol Enoxaparin Sodium (Lovenox) 60 mg SC Q12 [facility] Furosemide (Lasix) 20 mg IVP DAILY [facility] Last Admin: 12/02/18 12:49 Dose: 20 mg Glucagon (Glucagen Diagnostic Kit) 0 mg IM STAT PRN; Protocol PRN Reason: Hypoglycemia Protocol Dextrose (Dextrose 5% In Water 1000 Ml) 1,000 mls @ 0 mls/hr IV .Q0M PRN; Protocol PRN Reason: Hypoglycemia Protocol Insulin Human Regular (Novolin R) 0 unit SC ACHS [facility]; Protocol Last Admin: 12/03/18 08:16 Dose: Not Given Lisinopril (Zestril) 10 mg PO DAILY [facility] Last Admin: 12/02/18 12:50 Dose: 10 mg Rosuvastatin Calcium (Crestor) 40 mg PO HS [facility] - Labs Labs: 12/03/18 07:07 12/03/18 07:07 Assessment and Plan - Assessment and Plan (Free Text) Plan: Patient seen and evaluated personally by me. Plan of care d/w the resident and as documented"
[2018-12-02 13:33] LABS: BASO % 0.2 % (0.0-2.0); EOS # 0.2 K/uL (0.0-0.7); EOS % 4.1 % (0.0-4.0); HEMOGLOBIN 14.1 g/dL (11.0-16.0); LYMPH # 2.2 K/uL (1.0-4.3); MEAN CORPUSCULAR HEMOGLOBIN 30.8 pg (27.0-31.0); MEAN CORPUSCULAR HGB CONC 33.4 g/dL (33.0-37.0); MEAN PLATELET VOLUME 8.4 fL (7.2-11.7); MONO # 0.5 K/uL (0.0-0.8); MONO % 10.3 % (0.0-10.0); NEUT # 1.9 K/uL (1.8-7.0); NEUT % 39.4 % (50.0-75.0); NRBC % 0.1 % (0.0-2.0); RBC 4.58 Mil/uL (3.80-5.20); RED CELL DISTRIBUTION WIDTH 13.6 % (11.5-14.5); WHITE BLOOD COUNT 4.8 K/uL (4.8-10.8)
[2018-12-02 13:53] LABS: ALB/GLOB RATIO 1.1 (1.0-2.1); ALBUMIN 4.1 g/dL (3.5-5.0); CALCIUM 9.7 mg/dl (8.6-10.4)
--- NOTE | 2018-12-02 21:44 | CARD ---
APPROVED REPORT Date of service: 12/02/2018 Protocol: LEXISCAN Test Type: LEXISCAN STRESS Test Indications: SOB Medical History: CP Target HR: 154 bpm Resting ECG: abnormal Resting Heart Rate: 89 bpm Resting Blood Pressure: 134/80mmHg submaximum (85%): 131 bpm TEST SUMMARY PREINFSNHYPERV.[id number]/80.0. INFUSIONDOSE 100:300.00.01.095/.0. [id number]/80.0. PROCEDURE Pharmacologic stress testing was performed using 0.4mg per 5ml of regadenoson given intravenously over 7-10 seconds. POST EXERCISE Reason for Termination: Protocol Completed Target HR: No Max HR: 95 bpm 70% of Maximum Predicted HR: 154 bpm Exercise duration: 00:30 min:sec, 0 Stage Exercise capacity: 1.0METs Max Blood Pressure: 134/80mmHg Blood Pressure response to exercise: normal resting BP - appropriate response Heart Rate response to exercise: appropriate Chest Pain: No, none Angina index: 0 Arrhythmia: No, none ST Change: No, none Deviation: 0 mm INTERPRETATION Stress EKG Conclusion: Nuclear report to follow EXAM: Myocardial Perfusion STRESS/REST Imaging Protocol The imaging protocol used to acquire images was Stress Tc-99m/rest Tc-99m 1 day Stress Spect myocardial perfusion imaging was performed in supine position 43 minutes following the injection of 13.2 mCi of Tc-99 Myoview. Gated Rest Spect was performed 45 minutes after intravenous 32 mCi Tc-99 Myoview injection. The images were gated to evaluate regional wall motion and calculate ventricular ejection fraction.Images were reconstructed using backfilter projection method in short horizontal and verticle long axis. Spect slices were generated. RESTING DATA VKW327.75zlNZ0.60L/min LQO885.00mlMyocardial Ijvx466.00g Av. Heart Rate89.00bpm EF33.00% STRESS DATA SCO006.59gwDQ3.80L/min NAR310.00mlMyocardial Dasa854.00g EF39.00% Regional WT score at stress:3.00 Regional WM score at stress:2.00 Summed WT score at stress:40.00 Av. Heart Rate94.00bpmSummed WM score at stress:32.00 LV Perf. Quant 17 Seg. SSS0.00 17 Seg. SRS0.00 17 Seg. SDS0.00 Stress Defect Extent (% LAD)0.00Rest Defect Extent (% LAD)0.00Rev. Defect Extent (% LAD)0.00 Stress Defect Extent (% LCX)0.00Rest Defect Extent (% LCX)0.00Rev. Defect Extent (% LCX)0.00 Stress Defect Extent (% RCA)0.00Rest Defect Extent (% RCA)0.00Rev. Defect Extent (% RCA)0.00 Stress Defect Extent (% JAZIEL)0.00Rest Defect Extent (% JAZIEL)0.00Rev. Defect Extent (% JAZIEL)0.00 Other Information Quality:Good IMPRESSION Abnormal Myocardial Perfusion exercise stress study Left Ventricle LV Function:Left ventricle systolic function is low The Ejection Fraction is 30-40%. Conclusion 1. Mild intensity moderate sized anterior reversible defect suggestive of stress induced ischemia in LAD territary. EF 30-40% 2. Abnormal stress test
[2018-12-03 07:30] LABS: BASO % 0.8 % (0.0-2.0); EOS # 0.2 K/uL (0.0-0.7); EOS % 5.6 % (0.0-4.0); HEMOGLOBIN 13.5 g/dL (11.0-16.0); LYMPH # 2.2 K/uL (1.0-4.3); LYMPH % 49.2 % (20.0-40.0); MEAN CELL VOLUME 92.4 fL (81.0-99.0); MEAN CORPUSCULAR HEMOGLOBIN 30.9 pg (27.0-31.0); MEAN CORPUSCULAR HGB CONC 33.4 g/dL (33.0-37.0); MEAN PLATELET VOLUME 8.7 fL (7.2-11.7); MONO # 0.5 K/uL (0.0-0.8); MONO % 11.1 % (0.0-10.0); NEUT # 1.5 K/uL (1.8-7.0); NEUT % 33.3 % (50.0-75.0); NRBC % 0.1 % (0.0-2.0); RBC 4.37 Mil/uL (3.80-5.20); RED CELL DISTRIBUTION WIDTH 13.8 % (11.5-14.5); WHITE BLOOD COUNT 4.4 K/uL (4.8-10.8)
[2018-12-03] MEDS ORDERED: Lidocaine 2% MPF (5 ml) Inj ONE (07:40)
[2018-12-03] MEDS ORDERED: Iodixanol 320 MG/ML 100 ML BOTTLE IV ONE ×2 (07:40→08:22)
[2018-12-03] MEDS ORDERED: Nitroglycerin 50mg in D5W 50 MG/250 ML BOTTLE IV ONE (07:41)
[2018-12-03] MEDS ORDERED: Verapamil 2 ML ONE (07:41)
[2018-12-03] MEDS ORDERED: Midazolam 2 MG/2 ML VIAL ONE (07:58)
[2018-12-03 08:11] LABS: ALBUMIN 3.7 g/dL (3.5-5.0); CALCIUM 9.4 mg/dl (8.6-10.4)
[2018-12-03] MEDS: (Novolin R) Insulin Human Regular 100 units/ml vial SC SCH ×4 (08:16→21:56)
--- NOTE | 2018-12-03 08:48 | CP.PCM.PN ---
Subjective - Date & Time of Evaluation Date of Evaluation: 12/03/18 Time of Evaluation: 08:43 - Subjective Subjective: Patient s/p Cardiac cath 1. L Main: Patent 2. LAD: Proximal to mid long 70-75% eccentric stenosis, distal 80% stenosis, Diags have luminal irregularities 3. L Cx: Proximal 80%, OM170% 4. RCA: Dominant. Proximal 95% focal stenosis, PLV 70% 5. LV: EF 40%, Global hypokinesis, EDP 18, No Plan: CABG Transfer to [facility] on Thursday Lovenox 60sc bid ASA, Statins, b blockers Gentle IV hydration Resume diet Ambulate after 10.30am Objective - Vital Signs/Intake and Output Vital Signs (last 24 hours): Temp Pulse Resp BP Pulse Ox 98.1 F 76 20 132/63 97 12/02/18 23:10 12/02/18 23:10 12/02/18 23:10 12/02/18 23:10 12/02/18 23:10 Intake and Output: 12/03/18 12/03/18 06:59 18:59 Intake Total 450 Balance 450 - Medications Medications: Current Medications Amlodipine Besylate (Norvasc) 5 mg PO DAILY [facility] Last Admin: 12/02/18 12:50 Dose: 5 mg Aspirin (Aspirin Chewable) 81 mg PO DAILY [facility] Last Admin: 12/02/18 12:50 Dose: 81 mg Carvedilol (Coreg) 3.125 mg PO BID [facility] Last Admin: 12/02/18 17:43 Dose: 3.125 mg Dextrose (Dextrose 50% Inj) 0 ml IV STAT PRN; Protocol PRN Reason: Hypoglycemia Protocol Dextrose (Glutose 15) 0 gm PO ONCE PRN; Protocol PRN Reason: Hypoglycemia Protocol Enoxaparin Sodium (Lovenox) 60 mg SC Q12 [facility] Furosemide (Lasix) 20 mg IVP DAILY [facility] Last Admin: 12/02/18 12:49 Dose: 20 mg Glucagon (Glucagen Diagnostic Kit) 0 mg IM STAT PRN; Protocol PRN Reason: Hypoglycemia Protocol Dextrose (Dextrose 5% In Water 1000 Ml) 1,000 mls @ 0 mls/hr IV .Q0M PRN; Protocol PRN Reason: Hypoglycemia Protocol Insulin Human Regular (Novolin R) 0 unit SC ACHS [facility]; Protocol Last Admin: 12/03/18 08:16 Dose: Not Given Lisinopril (Zestril) 10 mg PO DAILY [facility] Last Admin: 12/02/18 12:50 Dose: 10 mg Rosuvastatin Calcium (Crestor) 40 mg PO ART - Labs Labs: 12/03/18 07:07 12/03/18 07:07
[2018-12-03] MEDS ORDERED: Sodium Chloride 0.45% 1,000 ML IV SCH (09:00)
[2018-12-03] MEDS: Enoxaparin 60 mg Syringe SC SCH ×2 (10:15→21:47)
--- NOTE | 2018-12-03 11:47 | CP.PCM.PN ---
Subjective - Date & Time of Evaluation Date of Evaluation: 12/03/18 Time of Evaluation: 07:30 - Subjective Subjective: Medicine note ( Dr. Sam's service) Patient was seen and examined at bedside s/p cardiac catherization. Patient states that she is doing well and has no complaints. Patient denies any symptoms of fever, chills, nausea, vomiting, chest pain, palpitations, shortness of breath, dizziness, syncope, numbness/tingling. Objective - Vital Signs/Intake and Output Vital Signs (last 24 hours): Temp Pulse Resp BP Pulse Ox 98.1 F 76 20 132/63 97 12/02/18 23:10 12/02/18 23:10 12/02/18 23:10 12/02/18 23:10 12/02/18 23:10 Intake and Output: 12/03/18 12/03/18 06:59 18:59 Intake Total 450 Balance 450 - Medications Medications: Current Medications Amlodipine Besylate (Norvasc) 5 mg PO DAILY [facility] Last Admin: 12/02/18 12:50 Dose: 5 mg Aspirin (Aspirin Chewable) 81 mg PO DAILY [facility] Last Admin: 12/02/18 12:50 Dose: 81 mg Carvedilol (Coreg) 3.125 mg PO BID [facility] Last Admin: 12/02/18 17:43 Dose: 3.125 mg Dextrose (Dextrose 50% Inj) 0 ml IV STAT PRN; Protocol PRN Reason: Hypoglycemia Protocol Dextrose (Glutose 15) 0 gm PO ONCE PRN; Protocol PRN Reason: Hypoglycemia Protocol Enoxaparin Sodium (Lovenox) 60 mg SC Q12 [facility] Furosemide (Lasix) 20 mg IVP DAILY [facility] Last Admin: 12/02/18 12:49 Dose: 20 mg Glucagon (Glucagen Diagnostic Kit) 0 mg IM STAT PRN; Protocol PRN Reason: Hypoglycemia Protocol Dextrose (Dextrose 5% In Water 1000 Ml) 1,000 mls @ 0 mls/hr IV .Q0M PRN; Protocol PRN Reason: Hypoglycemia Protocol Sodium Chloride (Sodium Chloride 0.45%) 1,000 mls @ 50 mls/hr IV .Q20H [facility] Stop: 12/03/18 19:01 Insulin Human Regular (Novolin R) 0 unit SC ACHS [facility]; Protocol Last Admin: 12/03/18 08:16 Dose: Not Given Lisinopril (Zestril) 10 mg PO DAILY [facility] Last Admin: 12/02/18 12:50 Dose: 10 mg Rosuvastatin Calcium (Crestor) 10 mg PO HS ART - Labs Labs: 12/03/18 07:07 12/03/18 07:07 - Constitutional Appears: No Acute Distress - Head Exam Head Exam: ATRAUMATIC, NORMAL INSPECTION - Eye Exam Eye Exam: EOMI, Normal appearance - ENT Exam ENT Exam: Mucous Membranes Moist - Respiratory Exam Respiratory Exam: Rales, NORMAL BREATHING PATTERN. absent: Chest Wall Tenderness, Decreased Breath Sounds, Prolonged Expiratory Phase, Rhonchi, Whe ezes, Respiratory Distress Additional comments: Mild diffuse lower lobes bilateral rales - Cardiovascular Exam Cardiovascular Exam: REGULAR RHYTHM, +S1, +S2 - GI/Abdominal Exam GI & Abdominal Exam: Soft, Normal Bowel Sounds. absent: Distended, Firm, Guarding, Rigid, Tenderness - Extremities Exam Extremities Exam: Normal Inspection. absent: Calf Tenderness, Pedal Edema Additional comments: S/p cardiac catherization * right radial access * With pressure dressing * No hematoma * Radial pulses palpable - Neurological Exam Neurological Exam: Alert, Awake, Oriented x3 - Psychiatric Exam Psychiatric exam: Normal Affect - Skin Skin Exam: Normal Color Assessment and Plan (1) Systolic congestive heart failure Assessment & Plan: Consultation: Cardiology, Dr. Cordova----> Help appreciated Management as per recommendation Imaging/Lab: Troponin: Negative X3 EKG (11/30/18): NSR @ 63BPM. Voltage criteria ventricular hypertrophy CXR (11/30/18): shows Small right pleural effusion. Trace left pleural effusion. Cardiomegaly with pulmonary venous congestion. Low-density airspace opacity right base low-density right basal infiltrate with or without compressive atelectasis. Concomitant coalescent pulmonary edema here also needs to be considered. Much lesser opacity-minimal infiltrate and subsegmental atelectasis left lateral lung base. An element of CHF the is inferred. CT Chest (PE protocol) 11/30/18: shows No large central or segmental pulmonary embolus identified. Small bilateral pleural effusions and associated consoli dations. Hazy bilateral lower lobe infiltrates. Thick-walled esophagus. Small to moderate hiatal hernia. Dense coronary artery calcifications. Echocardiogram (12/01/18): The left ventricle is normal size. The EF is 35-40%. The left atrial pressure is mildly elevated. The LA is moderately dilated. MR is moderate. Mild to moderate TR. Right ventricular systolic pressure is estimated at 45mmhg. Moderate pulmonary hypertension. No pericardial effusion Labs: - HgbA1C: 8.3 - TSH and Free T4: 2.22 and 1.10, respectively - Lipid Panel: * TGL: 147, Chol: 229, LDL: 146 and HDL: 53 Medication: * Lasix 20mg IV daily Status: Acute (2) Dyspnea Assessment & Plan: maging suggestive of acute CHF Consultation: Cardiology, Dr. Cordova----> Help appreciated * Management as per recommendation Imaging/labs: Troponin: Negative X3 EKG (11/30/18): NSR @ 63BPM. Voltage criteria ventricular hypertrophy -CXR (11/30/18): shows Small right pleural effusion. Trace left pleural effusion. Cardiomegaly with pulmonary venous congestion. Low-density airspace opacity right base low-density right basal infiltrate with or without compressive atelectasis. Concomitant coalescent pulmonary edema here also needs to be considered. Much lesser opacity-minimal infiltrate and subsegmental atelectasis left lateral lung base. An element of CHF the is inferred. -CT Chest (PE protocol) 11/30/18: shows No large central or segmental pulmonary embolus identified. Small bilateral pleural effusions and associated consolidations. Hazy bilateral lower lobe infiltrates. Thick-walled esophagus. Small to moderate hiatal hernia. Dense coronary artery calcifications. Echocardiogram (12/01/18): The left ventricle is normal size. The EF is 35-40%. The left atrial pressure is mildly elevated. The LA is moderately dilated. MR is moderate. Mild to moderate TR. Right ventricular systolic pressure is estimated at 45mmhg. Moderate pulmonary hypertension. No pericardial effusion Status: Acute (3) Uncontrolled hypertension Assessment & Plan: Improving Initiated Norvasc 5mg PO daily (12/01/18) Lisinopril 10mg PO daily Monitor for vital Q4H Status: Acute (4) Abnormal cardiovascular stress test Assessment & Plan: Cardiology: * Dr. Cordova---> Help appreciated Cardiac catherization (12/03/18) findings: 1. L Main: Patent 2. LAD: Proximal to mid long 70-75% eccentric stenosis, distal 80% stenosis, Diags have luminal irregularities 3. L Cx: Proximal 80%, OM170% 4. RCA: Dominant. Proximal 95% focal stenosis, PLV 70% 5. LV: EF 40%, Global hypokinesis, EDP 18, No Medications: * Coreg 3.125mg PO BID * ASA 81mg PO daily * Lovenox 60mg SC daily * Lisinopril 10mg PO daily * Crestor 10mg PO HS Plan: CABG Transfer to [facility] on Thursday Status: Acute (5) Elevated d-dimer Assessment & Plan: On admission: * D-dimer: 442 CT Chest (PE protocol) 11/30/18: shows No large central or segmental pulmonary embolus identified. Small bilateral pleural effusions and associated consolidations. Hazy bilateral lower lobe infiltrates. Thick-walled esophagus. Small to moderate hiatal hernia. Dense coronary artery calcifications. Status: Acute (6) Prophylactic measure Assessment & Plan: GI: Not indicated DVT: SCDs, lovenox 40mg SC daily Disposition: Plan: CABG; Transfer to [facility] on Thursday as per Dr. Cordova As per patient, patient's daughter prefers [facility]. Patient's daughter will call Dr. Cordova All plans and management discussed with Dr. Sam Status: Acute
[2018-12-03 23:47] VITALS: O2SAT 100
[2018-12-04 07:44] VITALS: PULSE 72; RESP 18; TEMP 98.1
[2018-12-04] MEDS: (Novolin R) Insulin Human Regular 100 units/ml vial SC SCH (08:25)
[2018-12-04 08:47] LABS: BASO % 0.8 % (0.0-2.0); EOS # 0.2 K/uL (0.0-0.7); EOS % 5.1 % (0.0-4.0); HEMOGLOBIN 13.5 g/dL (11.0-16.0); LYMPH # 1.8 K/uL (1.0-4.3); LYMPH % 39.9 % (20.0-40.0); MEAN CORPUSCULAR HEMOGLOBIN 31.3 pg (27.0-31.0); MEAN CORPUSCULAR HGB CONC 34.4 g/dL (33.0-37.0); MEAN PLATELET VOLUME 8.7 fL (7.2-11.7); MONO # 0.5 K/uL (0.0-0.8); MONO % 11.1 % (0.0-10.0); NEUT % 43.1 % (50.0-75.0); NRBC % 0.1 % (0.0-2.0); RBC 4.32 Mil/uL (3.80-5.20); RED CELL DISTRIBUTION WIDTH 13.5 % (11.5-14.5); WHITE BLOOD COUNT 4.6 K/uL (4.8-10.8)
[2018-12-04 08:55] LABS: ALBUMIN 3.9 g/dL (3.5-5.0); CALCIUM 9.4 mg/dl (8.6-10.4)
[2018-12-04] MEDS: Enoxaparin 60 mg Syringe SC SCH (09:17)
[2018-12-04 09:18] VITALS: BP 120/69
--- NOTE | 2018-12-06 07:36 | DS ---
The patient admitted to the hospital with a chief complaint of shortness of breath. The patient was found to have congestive heart failure. She was placed for cardiac stent in cardiac cath for severe peripheral vascular disease. The patient was advised coronary artery bypass. The patient elected to go to [facility] in stable condition. DIAGNOSES: Congestive heart failure, coronary artery disease, systolic congestive heart failure. Manjinder Sam MD
== END 2018-12-04 10:20 | disposition short-term general hospital (02) | DRG 286 ==
LOC: C.ER 11:28 → C.9E 15:51 → C.5S 17:17 → MERGE 12-02 13:47 → OBSVTOIN 12-02 13:47
PROVIDERS: ADMIT Internal Medicine Pulmonary Disease; ATTEND Internal Medicine Pulmonary Disease
PROC: 4A023N7 Measurement of Cardiac Sampling and Pressure, Left Heart, Percutaneous Approach (ICD-10-PCS; principal; 2018-12-03)
PROC: B2151ZZ Fluoroscopy of Left Heart using Low Osmolar Contrast (ICD-10-PCS; 2018-12-03)
PROC: B2111ZZ Fluoroscopy of Multiple Coronary Arteries using Low Osmolar Contrast (ICD-10-PCS; 2018-12-03)
DX: I11.0 Hypertensive heart disease with heart failure (principal); I50.21 Acute systolic (congestive) heart failure; I25.10 Atherosclerotic heart disease of native coronary artery without angina pectoris; E87.6 Hypokalemia; I27.20 Pulmonary hypertension, unspecified; E11.51 Type 2 diabetes mellitus with diabetic peripheral angiopathy without gangrene; F17.210 Nicotine dependence, cigarettes, uncomplicated; K44.9 Diaphragmatic hernia without obstruction or gangrene; E78.5 Hyperlipidemia, unspecified; Z91.19 Patient's noncompliance with other medical treatment and regimen; Z71.89 Other specified counseling; Z82.49 Family history of ischemic heart disease and other diseases of the circulatory system

== ENCOUNTER 2018-12-22 05:25 | Emergency (ER) | payer MEDICARE, OTHER | END 2018-12-22 09:15 | disposition short-term general hospital (02) | LOC: C.9E 08:37 → C.ER 05:25 → C.9E 07:35 → C.5S 08:37 ==